=== PATIENT | female | born 1980 | race Caucasian/White ===

== ENCOUNTER 2023-05-13 12:33 | Outpatient (CLI) | payer MEDICAID | END 2023-05-13 12:34 | disposition home or self-care (01) | LOC: CSHMAMMO 12:33 | PROVIDERS: ATTEND Nurse Practitioner Family | DX: Z12.31 Encounter for screening mammogram for malignant neoplasm of breast (principal); Z80.3 Family history of malignant neoplasm of breast | CPT/HCPCS: 77067 ==

== ENCOUNTER 2024-05-11 18:54 | Inpatient (IN) | payer MEDICAID, OTHER ==
[~2024-05-11 18:54] MED LIST: Iopamidol 370 76% 100 ML VIAL ONE
[2024-05-11 19:41] LABS: #Basophils 0.03 10x3/uL (0.0-0.2); #Eosinophils 0.09 10x3/uL (0.0-0.5); #Monocytes 1.11 10x3/uL (0.0-1.1); #Neutrophils 11.78 10x3/uL (1.5-8.4); %Basophils 0.2 % (0.0-2.0); %Eosinophils 0.5 % (0.0-6.0); %Lymphocytes 20.2 % (18.0-47.0); %Monocytes 6.8 % (0.0-10.0); %Neutrophils 71.9 % (40.0-75.0); Hematocrit 39.1 % (34.9-44.5); Hemoglobin 12.9 g/dL (12.0-15.5); Mean Corpuscular Hemoglobin 29.4 pg (27.0-33.0); Mean Corpuscular Volume 89.1 fL (81.6-98.3); Platelet Count 263 10x3/uL (150-450); RBC Distribution Width 13.5 % (11.5-14.5); Red Blood Cell (RBC) Count 4.39 10x6/uL (3.90-5.03); White Blood Cell (WBC) Count 16.4 10x3/uL (3.5-10.5)
[2024-05-11 19:45] LABS: BHCG - Serum Negative (NEGATIVE); Pregs Control Background? CLEAR/WHITE (CLR/WHITE); Pregs Control Bar Appear? YES (CONTROL BAR)
[2024-05-11 19:47] LABS: ALT (SGPT) 10 U/L (8-55); AST (SGOT) 12 U/L (5-34); Albumin 3.8 g/dL (3.5-5.0); Alkaline Phosphatase 60 U/L (40-110); Anion Gap 12 mmol/L (10-20); BUN (Urea Nitrogen) 9 mg/dL (7.0-18.7); Bilirubin, Total 0.4 mg/dL (0.2-1.2); Calc. Creatinine Clearance 0 mL/min (70-130); Calcium 9.7 mg/dL (7.8-10.44); Carbon Dioxide 26 mmol/L (22-29); Chloride 104 mmol/L (98-107); Estimated GFR 86; Globulin 3.2 g/dL (2.4-3.5); Glucose 83 mg/dL (70-105); Lipase 140 U/L (8-78); Potassium 3.7 mmol/L (3.5-5.1); Sodium 138 mmol/L (136-145)
[2024-05-11] MEDS ORDERED: Ketorolac Tromethamine 30 MG (1 mL) VIAL ONE (20:09)
[2024-05-11] MEDS ORDERED: Famotidine/PF 20 mg/2ml Vial ONE (20:09)
[2024-05-11 20:27] LABS: Bilirubin Neg (Negative); Blood, Urine Negative (Negative); Clarity Clear (Clear); Glucose, Urine (Dipstick) Normal (Negative); Ketone, Urine Negative (Negative); Leukocyte Negative (Negative); Nitrite Negative (Negative); Protein, Urine (Dipstick) Negative (Neg-Trace)
[2024-05-11] MEDS ORDERED: Ondansetron PF 4 MG/2 ML Vial ONE (20:42)
[2024-05-11] MEDS ORDERED: Morphine 4 MG/ML VIAL ONE (20:42)
[2024-05-11 20:48] LABS: Bacteria/HPF 2+ HPF (None Seen); CAUTI Indications for Culture Pelvic or flank pain; RBC/HPF 0-3 HPF (0-3); WBC/HPF 0-3 HPF (0-3)
[2024-05-11 20:50] LABS: Urine Culture Reflex No No
[2024-05-11] MEDS ORDERED: Dextrose 5% in Water 1,000 ML IV PRN (22:18)
[2024-05-11] MEDS ORDERED: Dextrose 50% Abboject 50 ML SYRINGE SLOW IVP PRN (22:18)
[2024-05-11] MEDS ORDERED: Glucagon 1 MG/ML KIT IM PRN (22:18)
[2024-05-11] MEDS ORDERED: Calcium Carbonate 500 MG ChewTAB PO PRN (22:19)
[2024-05-11] MEDS ORDERED: Senokot S 8.6-50 MG TAB PO PRN (22:19)
[2024-05-11] MEDS ORDERED: Acetaminophen 325 MG TAB PO PRN (22:19)
[2024-05-11] MEDS ORDERED: Insulin Lispro 100 UNIT/ML 10 ML VIAL SC PRN (22:19)
[2024-05-11 23:55] VITALS: BMI 28.0
[2024-05-12] MEDS: cefTRIAXone\\ROCEPHIN 1 GM in Sodium Chloride 0.9% 100 ML IVPB SCH (00:03)
[2024-05-12] MEDS: Lactated Ringer's 1,000 ML IV SCH ×2 (00:03→09:51)
[2024-05-12] MEDS: HYDROcodone/Acetaminophen 5/325 mg Tablet PO PRN (00:04)
[2024-05-12] MEDS: Nicotine 14 MG PATCH TD SCH ×2 (00:04→11:07)
[2024-05-12] MEDS: Zolpidem Tartrate 5 MG TAB PO PRN (00:33)
[2024-05-12] MEDS: Morphine 2 MG/ML VIAL SLOW IVP PRN (01:15)
[2024-05-12 04:16] LABS: ALT (SGPT) 8 U/L (8-55); AST (SGOT) 10 U/L (5-34); Alkaline Phosphatase 49 U/L (40-110); Anion Gap 12 mmol/L (10-20); BUN (Urea Nitrogen) 7 mg/dL (7.0-18.7); Bilirubin, Total 0.3 mg/dL (0.2-1.2); Calc. Creatinine Clearance 104 mL/min (70-130); Calcium 8.6 mg/dL (7.8-10.44); Carbon Dioxide 23 mmol/L (22-29); Chloride 107 mmol/L (98-107); Estimated GFR 103; Globulin 2.8 g/dL (2.4-3.5); Glucose 106 mg/dL (70-105); Lipase 67 U/L (8-78); Magnesium 1.6 mg/dL (1.6-2.6); Potassium 3.7 mmol/L (3.5-5.1); Protein, Total 5.8 g/dL (6.0-8.3); Sodium 138 mmol/L (136-145)
[2024-05-12 04:17] LABS: #Basophils 0.02 10x3/uL (0.0-0.2); #Monocytes 0.98 10x3/uL (0.0-1.1); #Neutrophils 7.81 10x3/uL (1.5-8.4); %Basophils 0.2 % (0.0-2.0); %Eosinophils 0.8 % (0.0-6.0); %Lymphocytes 25.4 % (18.0-47.0); %Monocytes 8.2 % (0.0-10.0); %Neutrophils 65.1 % (40.0-75.0); Hemoglobin 11.3 g/dL (12.0-15.5); Mean Corpuscular HGB CONC 32.3 g/dL (32.0-36.0); Mean Corpuscular Volume 89.7 fL (81.6-98.3); Mean Platelet Volume 11.3 fL (7.4-10.4); Platelet Count 209 10x3/uL (150-450); RBC Distribution Width 13.7 % (11.5-14.5)
[2024-05-12] MEDS: Morphine 4 MG/ML VIAL SLOW IVP PRN (04:59)
[2024-05-12] MEDS: Ondansetron PF 4 MG/2 ML Vial IVP PRN (08:17)
[2024-05-12] MEDS: Losartan 25 MG TAB PO SCH (09:46)
[2024-05-12] MEDS: BuPROPion XL 150 MG ER.TAB PO SCH (09:46)
[2024-05-12] MEDS: Enoxaparin 40 MG (0.4 mL) SYRINGE SC SCH (09:46)
[2024-05-12] MEDS: Famotidine/PF 20 mg/2ml Vial SLOW IVP SCH (09:46)
[2024-05-12] MEDS: DULoxetine 20 MG CAP PO SCH (11:06)
[2024-05-12] MEDS: Diclofenac 25 MG DR.TAB PO SCH (11:06)
[2024-05-12 12:42] LABS: Hemoglobin A1c 6.1 % (4.0-6.0)
[2024-05-12] MEDS: ZENPEP PO SCH (13:40)
[2024-05-13] MEDS: Pantoprazole DR 40 MG TAB PO SCH (09:06)
[2024-05-13] MEDS: Nicotine 14 MG PATCH TD SCH (10:02)
[2024-05-13] MEDS: Lactated Ringer's 1,000 ML IV SCH (10:02)
[2024-05-13] MEDS: HYDROcodone/Acetaminophen 7.5/325 mg Tablet PO PRN (12:07)
[2024-05-14 16:40] VITALS: BP 157/76; TEMP 97.8
== END 2024-05-14 16:30 | disposition home or self-care (01) | DRG 439 ==
LOC: CSHERS 18:54 → CSHTELE 22:11
PROVIDERS: ADMIT Student in an Organized Health Care Education/Training Program; ATTEND Internal Medicine
DX: K85.90 Acute pancreatitis without necrosis or infection, unspecified (principal); K86.2 Cyst of pancreas; K86.1 Other chronic pancreatitis; Z91.048 Other nonmedicinal substance allergy status; Z91.040 Latex allergy status; Z88.0 Allergy status to penicillin; Z88.8 Allergy status to other drugs, medicaments and biological substances; Z98.51 Tubal ligation status; N28.82 Megaloureter; F17.210 Nicotine dependence, cigarettes, uncomplicated; R82.71 Bacteriuria; I10 Essential (primary) hypertension; F41.9 Anxiety disorder, unspecified; Z79.899 Other long term (current) drug therapy
CPT/HCPCS: 36415; 36416; 74177; 74181; 76376; 76705; 80053; 81001; 83036; 83690; 83735; 84703; 85025; 93005; 96361; 96374; 96375; J0696; J1650; J1885; J2272; J2405; J3490; J7120; Q9967